=== PATIENT | female | born 1960 | race American Indian/Alaskan Native ===

== ENCOUNTER 2016-03-01 18:06 | Inpatient (IN) | payer MEDICARE ==
--- NOTE | 2016-03-01 18:58 | Emergency Department Report ---
Chief Complaint: Urogenital-Female Stated Complaint: BLOOD IN URINE Time Seen by Provider: 03/01/16 18:54 - HPI History of Present Illness: Patient here complaining of left flank pain. Patient said that it started last and it's getting worst today. She says she has some blood in her urine. Positive nausea without any vomiting. Denies any urinary burning frequency or urgency. She said when she urinates the toilet is full of blood. Patient has a history of pulmonary embolism and she is on Coumadin. - ROS Review of Systems: All systems are negative unless stated in HPI above - Exam Vital Signs: Vital Signs 03/01/16 18:14 Temperature 97.9 F Pulse Rate 73 Respiratory 18 Rate Blood Pressure 150/102 O2 Sat by Pulse 100 Oximetry Physical Exam: General: This is a 55-year-old female that is moaning and groaning saying that she is having abdominal pain. CV: One, S2. Regular rate and rhythm .blood pressure is 150/102. Abdomen: Mild tenderness to palpate to abdominal area. Mild left CVA tenderness. Normal bowel sounds. MSE screening note: Focused history and physical exam performed. Due to findings the following was ordered: See MDM ED Medical Decision Making - Medical Decision Making Medical decision making: Patient seen by provider in triage area. Appropriate protocol activated and patient to main ED to be seen by physician. ED Disposition for MSE Condition: Stable
[2016-03-01 19:33] LABS: Hematocrit 36.4 % (30.3-42.9); Hemoglobin 11.9 gm/dl (10.1-14.3); Mean Corpuscular HGB Conc 33 % (30-34); Mean Corpuscular Hemoglobin 29 pg (28-32); Mean Corpuscular Volume 87 fl (79-97); Platelet Count 308 K/mm3 (140-440); Red Blood Count 4.19 M/mm3 (3.65-5.03); Red Cell Distribution Width 14.9 % (13.2-15.2); White Blood Count 11.3 K/mm3 (4.5-11.0)
[2016-03-01 19:44] LABS: INR 4.09 (0.87-1.13)
[2016-03-01 19:45] LABS: Partial Thromboplastin Time 49.1 Sec. (24.2-36.6)
[2016-03-01 19:59] LABS: Alanine Aminotransferase 16 units/L (7-56); Albumin 3.9 g/dL (3.9-5); Albumin/Globulin Ratio 1.1 %; Alkaline Phosphatase 77 units/L (35-129); Amylase 62 units/L (27-131); BUN/Creatinine Ratio 13.33; Bilirubin,Total 0.4 mg/dL (0.1-1.2); Blood Urea Nitrogen 12 mg/dL (7-17); Calcium 8.7 mg/dL (8.4-10.2); Carbon Dioxide 23 mmol/L (22-30); Chloride 98.6 mmol/L (98-107); Glucose 157 mg/dL (65-100); Lipase 50 units/L (13-60); Potassium 3.4 mmol/L (3.6-5.0); Sodium 139 mmol/L (137-145); Total Protein 7.4 g/dL (6.3-8.2)
[2016-03-01 20:01] LABS: Anion Gap 21 mmol/L
--- NOTE | 2016-03-01 20:02 | Cat Scan Report ---
FINAL REPORT PROCEDURE: CT ABDOMEN PELVIS WO CON TECHNIQUE: Computerized axial tomography of the abdomen and pelvis was performed without intravenous contrast. This study is performed without intravascular contrast material and its sensitivity for abdominal and pelvic pathology, including neoplasms, inflammation, abscess, free fluid, thrombosis, arterial dissection and infarction, is reduced compared with a contrast enhanced study. HISTORY: abdominal pain COMPARISON: No prior studies are available for comparison. FINDINGS: Calcified granuloma are seen in the spleen. There is a probable cyst in the superior aspect of the right hepatic lobe measuring 1.4 cm. Normal variant diminished density is seen in the bare area of the liver. Gallbladder and pancreas display no abnormalities. Adrenal glands and abdominal aorta are normal in size. Mild perinephric streaky densities are seen that also surround the upper ureters. Mild bilateral hydronephrosis is seen. Both kidneys are excreting hyperdense substance which is worrisome for possible hemorrhage. Findings could be from prior IV contrast-enhanced study. No ureteral stones are seen. Consideration should be given to a possible infectious or inflammatory process within the bilateral collecting systems, right greater than left. Bladder is decompressed but displays no abnormalities. Phleboliths are seen in the pelvis. No free pelvic fluid is seen. No adnexal masses are seen. Normal appendix is seen. There is no bowel obstruction. There is partial sacralization of L5. Moderate to prominent spondylosis is seen at L4-5. IMPRESSION: Findings are suspicious for possible infectious or inflammatory process within the urinary collecting systems, right greater than left. Both kidneys appear to be excreting hyperdense substance which is worrisome for possible hemorrhage within the urine. Density could be from prior IV contrast-enhanced study, though. Mild hydronephrosis is seen bilaterally.
[2016-03-01 20:57] LABS: Basophils % (Manual) 0 % (0.0-1.8); Blastocytes % (Manual) 0 %; Eosinophils % (Manual) 0 % (0.0-4.3)
[2016-03-01 20:59] LABS: Anisocytosis 1+; Diff Status Complete; Platelet Estimate Consistent w Auto
[2016-03-01 23:08] LABS: Bilirubin,Urine NEG (Negative); Blood,Urine LG (Negative); Ketones,Urine NEG (Negative); Leukocyte Esterase,Urine SM (Negative); Mucus,Urine 2+ /HPF; Nitrite,Urine NEG (Negative); Urobilinogen,Urine < 2.0 mg/dL (<2.0)
[2016-03-01 23:13] LABS: RBC,Urine > 182.0 /HPF (0.0-6.0)
[2016-03-02] MEDS ORDERED: MORPHINE IV ONE (03:54)
[2016-03-02] MEDS ORDERED: ROCEPHIN/NS 1 GM/50 ML 50 ML IV ONE (03:54)
--- NOTE | 2016-03-02 03:56 | Emergency Department Report ---
ED General Adult HPI - General Chief complaint: Urogenital-Female Stated complaint: BLOOD IN URINE Time Seen by Provider: 03/01/16 19:01 Source: patient, RN notes reviewed, old records reviewed Mode of arrival: Ambulatory Limitations: No Limitations - History of Present Illness Initial comments: This is a 55-year-old female, previously unknown to me. She has a past medical history of coronary artery disease, pulmonary and was, currently on Coumadin therapy. Patient presents to the ER complaining of flank pain, fever at home, to 101, nausea, gross hematuria, urinary frequency. The patient presented to the ER on February 22 for similar symptoms, and was treated empirically with Macrobid. The patient reports compliance with Macrobid , and has 2 tablets left. There is no hematemesis, there is no bright red blood per rectum. Hematuria and flank/back pain is constant. Has no exacerbating or relieving factors. -: Gradual Location: back Severity scale (0 -10): 10 Quality: aching Consistency: constant Improves with: none Worsens with: none Associated Symptoms: fever/chills, malaise, nausea/vomiting, weakness. denies: confusion, chest pain, cough, diaphoresis, loss of appetite - Related Data Home Medications Medication Instructions Recorded Confirmed Last Taken Amiodarone [Cordarone 200 MG TAB] 200 mg PO DAILY 12/15/15 02/23/16 Unknown Aspirin [Aspirin BABY CHEW TAB] 81 mg PO QDAY 12/15/15 02/23/16 Unknown Docusate Sodium [Colace] 100 mg PO BID PRN 12/15/15 02/23/16 Unknown Metoprolol Tartrate [Lopressor] 25 mg PO TID 12/15/15 02/23/16 Unknown Warfarin [Coumadin] 1 mg PO QDAY 12/15/15 02/23/16 Unknown Previous Rx's Medication Instructions Recorded Last Taken Type Nitrofurantoin Treutlen/M-Cryst 100 mg PO Q12HR #14 capsule 02/23/16 Unknown Rx [Macrobid CAP] Allergies Allergy/AdvReac Type Severity Reaction Status Date / Time No Known Allergies Allergy Verified 11/29/15 14:50 ED Review of Systems ROS: Stated complaint: BLOOD IN URINE Other details as noted in HPI Constitutional: chills, fever Eyes: denies: vision change ENT: denies: epistaxis Respiratory: denies: cough Cardiovascular: denies: chest pain Gastrointestinal: nausea Genitourinary: frequency, hematuria Musculoskeletal: back pain Skin: denies: rash, lesions Neurological: denies: headache, weakness ED Past Medical Hx - Past Medical History Previous Medical History?: Yes Hx Hypertension: Yes Hx Heart Attack/AMI: Yes Hx Congestive Heart Failure: No Hx Diabetes: No Hx Arthritis: Yes Hx Asthma: No Hx COPD: No Additional medical history: 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 - Surgical History Past Surgical History?: Yes Hx Open Heart Surgery: Yes (TRIPLE BYPASS) Additional Surgical History: tubal ligation, wrist surgery, elbow surgery - Social History Smoking Status: Current Every Day Smoker Substance Use Type: Non Opiate Pain, Prescribed - Medications Home Medications: Home Medications Medication Instructions Recorded Confirmed Last Taken Type Amiodarone [Cordarone 200 MG TAB] 200 mg PO DAILY 12/15/15 02/23/16 Unknown History Aspirin [Aspirin BABY CHEW TAB] 81 mg PO QDAY 12/15/15 02/23/16 Unknown History Docusate Sodium [Colace] 100 mg PO BID PRN 12/15/15 02/23/16 Unknown History Metoprolol Tartrate [Lopressor] 25 mg PO TID 12/15/15 02/23/16 Unknown History Warfarin [Coumadin] 1 mg PO QDAY 12/15/15 02/23/16 Unknown History Nitrofurantoin Treutlen/M-Cryst 100 mg PO Q12HR #14 capsule 02/23/16 Unknown Rx [Macrobid CAP] ED Physical Exam - General Limitations: No Limitations General appearance: alert, in no apparent distress - Head Head exam: Present: atraumatic, normocephalic - Eye Eye exam: Present: normal appearance, EOMI. Absent: nystagmus - ENT ENT exam: Present: normal exam, normal orophraynx, mucous membranes moist, normal external ear exam - Neck Neck exam: Present: normal inspection, full ROM. Absent: tenderness, meningismus - Respiratory Respiratory exam: Present: normal lung sounds bilaterally. Absent: respiratory distress, wheezes, rales, rhonchi, stridor, chest wall tenderness - Cardiovascular Cardiovascular Exam: Present: regular rate, normal rhythm, normal heart sounds. Absent: bradycardia, tachycardia, irregular rhythm, systolic murmur, diastolic murmur, rubs, gallop - GI/Abdominal GI/Abdominal exam: Present: soft, normal bowel sounds. Absent: distended, tenderness, guarding, rebound, rigid, pulsatile mass - External exam: Present: normal external exam, other (escorted by ASIF HUGHES). Absent: bleeding - Extremities Exam Extremities exam: Present: normal inspection, full ROM, normal capillary refill. Absent: tenderness, pedal edema, joint swelling, calf tenderness - Back Exam Back exam: Present: normal inspection, full ROM, CVA tenderness (R), CVA tenderness (L). Absent: tenderness, paraspinal tenderness, vertebral tenderness - Neurological Exam Neurological exam: Present: alert, oriented X3, normal gait, other (Extraocular movements intact. Tongue midline. No facial droop. Facial sensation intact to light touch in the V1, V2, V3 distribution bilaterally. 5 and 5 strength in 4 extremities.. Sensation is intact to light touch in 4 extremities.). Absent : motor sensory deficit - Psychiatric Psychiatric exam: Present: normal affect, normal mood - Skin Skin exam: Present: warm, dry, intact, normal color. Absent: rash ED Course Vital Signs 03/01/16 03/02/16 03/02/16 18:14 00:58 03:21 Temperature 97.9 F 97.4 F L Pulse Rate 73 79 89 Respiratory 18 16 Rate Blood Pressure 150/102 Blood Pressure 147/98 [Left] O2 Sat by Pulse 100 100 Oximetry 03/02/16 03/02/16 03/02/16 03:25 03:32 04:14 Temperature Pulse Rate 79 Respiratory 13 18 16 Rate Blood Pressure 136/80 Blood Pressure [Left] O2 Sat by Pulse 98 99 Oximetry - Reevaluation(s) Reevaluation #1: 03/02/16 04:30 Differential diagnosis: Pyelonephritis, supratherapeutic INR, para, renal hemorrhage, collecting system hemorrhage Assessment and plan: 55-year-old female with gross hematuria, possible pyelonephritis, supratherapeutic INR. In terms of the patient's possible pyelonephritis, she has been taking antibiotic therapy, has reported compliance, it is still symptomatic. Not a candidate for fluoroquinolone therapy given that she is taking Coumadin therapy. Reports fever at home. A noncontrast CT scan of the abdomen and pelvis demonstrated numerous concerning findings, including streaky densities, hydronephrosis, and both kidneys excreting hyperdense material. Renal hemorrhage is certainly a possibility. She is afebrile currently and is normotensive. She will be covered empirically with ceftriaxone, which is bacteriocidal rather than bacteriostatic Macrobid. She will be given vitamin K orally. I believe she will benefit from pain control, serial abdominal and back exams, IV antibiotics, and adjustment of her medications for her supratherapeutic INR. Given that this is her second visit within a week and a half, and she reports compliance with antibiotic therapy Dr. Giles, the hospital physician, accepts the patient. ED Medical Decision Making - Lab Data Result diagrams: 03/01/16 19:17 03/01/16 19:17 Vital Signs 03/01/16 03/02/16 03/02/16 18:14 00:58 03:21 Temperature 97.9 F 97.4 F L Pulse Rate 73 79 89 Respiratory 18 16 Rate Blood Pressure 150/102 Blood Pressure 147/98 [Left] O2 Sat by Pulse 100 100 Oximetry 03/02/16 03/02/16 03/02/16 03:25 03:32 04:14 Temperature Pulse Rate 79 Respiratory 13 18 16 Rate Blood Pressure 136/80 Blood Pressure [Left] O2 Sat by Pulse 98 99 Oximetry Lab Results 03/01/16 03/01/16 03/01/16 Range/Units 19:17 19:17 19:17 WBC 11.3 H (4.5-11.0) K/mm3 RBC 4.19 (3.65-5.03) M/mm3 Hgb 11.9 (10.1-14.3) gm/dl Hct 36.4 (30.3-42.9) % MCV 87 (79-97) fl MCH 29 (28-32) pg MCHC 33 (30-34) % RDW 14.9 (13.2-15.2) % Plt Count 308 (140-440) K/mm3 Lymph % (Auto) Assistant Associate Professor Lymph # Assistant Associate Professor Add Manual Diff Complete Total Counted 100 Seg Neutrophils % Assistant Associate Professor Seg Neuts % (Manual) 28.0 L (40.0-70.0) % Band Neutrophils % 10.0 % Lymphocytes % (Manual) 51.0 H (13.4-35.0) % Reactive Lymphs % (Man) 9.0 % Monocytes % (Manual) 2.0 (0.0-7.3) % Eosinophils % (Manual) 0 (0.0-4.3) % Basophils % (Manual) 0 (0.0-1.8) % Metamyelocytes % 0 % Myelocytes % 0 % Promyelocytes % 0 % Blast Cells % 0 % Nucleated RBC % Not Reportable Seg Neutrophils # Man 3.2 (1.8-7.7) K/mm3 Band Neutrophils # 1.1 K/mm3 Lymphocytes # (Manual) 5.8 H (1.2-5.4) K/mm3 Abs React Lymphs (Man) 1.0 K/mm3 Monocytes # (Manual) 0.2 (0.0-0.8) K/mm3 Eosinophils # (Manual) 0.0 (0.0-0.4) K/mm3 Basophils # (Manual) 0.0 (0.0-0.1) K/mm3 Metamyelocytes # 0.0 K/mm3 Myelocytes # 0.0 K/mm3 Promyelocytes # 0.0 K/mm3 Blast Cells # 0.0 K/mm3 WBC Morphology Not Reportable Hypersegmented Neuts Not Reportable Hyposegmented Neuts Not Reportable Hypogranular Neuts Not Reportable Smudge Cells Not Reportable Toxic Granulation Not Reportable Toxic Vacuolation Not Reportable Dohle Bodies Not Reportable Pelger-Huet Anomaly Not Reportable Karine Rods Not Reportable Platelet Estimate Consistent w auto Clumped Platelets Not Reportable Plt Clumps, EDTA Not Reportable Large Platelets Not Reportable Giant Platelets Not Reportable Platelet Satelliting Not Reportable Plt Morphology Comment Not Reportable RBC Morphology Not Reportable Dimorphic RBCs Not Reportable Polychromasia Not Reportable Hypochromasia Not Reportable Poikilocytosis Not Reportable Anisocytosis 1+ Microcytosis Not Reportable Macrocytosis Not Reportable Spherocytes Not Reportable Pappenheimer Bodies Not Reportable Sickle Cells Not Reportable Target Cells Not Reportable Tear Drop Cells Not Reportable Ovalocytes Not Reportable Helmet Cells Not Reportable Merrill-Belmond Bodies Not Reportable Heron Rings Not Reportable [place] Cells Not Reportable Bite Cells Not Reportable Crenated Cell Not Reportable Elliptocytes Not Reportable Acanthocytes (Spur) Not Reportable Rouleaux Not Reportable Hemoglobin C Crystals Not Reportable Schistocytes Not Reportable Malaria parasites Not Reportable Massimo Bodies Not Reportable Hem Pathologist Commnt No PT 40.1 H (12.2-14.9) Sec. INR 4.09 H (0.87-1.13) APTT 49.1 H (24.2-36.6) Sec. Sodium 139 (137-145) mmol/L Potassium 3.4 L (3.6-5.0) mmol/L Chloride 98.6 (98-107) mmol/L Carbon Dioxide 23 (22-30) mmol/L Anion Gap 21 mmol/L BUN 12 (7-17) mg/dL Creatinine 0.9 (0.7-1.2) mg/dL Estimated GFR > 60 ml/min BUN/Creatinine Ratio 13.33 % Glucose 157 H (65-100) mg/dL Calcium 8.7 (8.4-10.2) mg/dL Total Bilirubin 0.4 (0.1-1.2) mg/dL AST 22 (5-40) units/L ALT 16 (7-56) units/L Alkaline Phosphatase 77 (35-129) units/L Total Protein 7.4 (6.3-8.2) g/dL Albumin 3.9 (3.9-5) g/dL Albumin/Globulin Ratio 1.1 % Amylase 62 (27-131) units/L Lipase 50 (13-60) units/L Urine Color (Yellow) Urine Turbidity (Clear) Urine pH (5.0-7.0) Ur Specific [place] (1.003-1.030) Urine Protein (Negative) mg/dL Urine Glucose (UA) (Negative) mg/dL Urine Ketones (Negative) mg/dL Urine Blood (Negative) Urine Nitrite (Negative) Urine Bilirubin (Negative) Urine Urobilinogen (<2.0) mg/dL Ur Leukocyte Esterase (Negative) Urine WBC (Auto) (0.0-6.0) /HPF Urine RBC (Auto) (0.0-6.0) /HPF U Epithel Cells (Auto) (0-13.0) /HPF Urine Mucus /HPF Blood Type Antibody Screen 03/01/16 03/01/16 Range/Units 19: 21:55 WBC (4.5-11.0) K/mm3 RBC (3.65-5.03) M/mm3 Hgb (10.1-14.3) gm/dl Hct (30.3-42.9) % MCV (79-97) fl MCH (28-32) pg MCHC (30-34) % RDW (13.2-15.2) % Plt Count (140-440) K/mm3 Lymph % (Auto) Lymph # Add Manual Diff Total Counted Seg Neutrophils % Seg Neuts % (Manual) (40.0-70.0) % Band Neutrophils % % Lymphocytes % (Manual) (13.4-35.0) % Reactive Lymphs % (Man) % Monocytes % (Manual) (0.0-7.3) % Eosinophils % (Manual) (0.0-4.3) % Basophils % (Manual) (0.0-1.8) % Metamyelocytes % % Myelocytes % % Promyelocytes % % Blast Cells % % Nucleated RBC % Seg Neutrophils # Man (1.8-7.7) K/mm3 Band Neutrophils # K/mm3 Lymphocytes # (Manual) (1.2-5.4) K/mm3 Abs React Lymphs (Man) K/mm3 Monocytes # (Manual) (0.0-0.8) K/mm3 Eosinophils # (Manual) (0.0-0.4) K/mm3 Basophils # (Manual) (0.0-0.1) K/mm3 Metamyelocytes # K/mm3 Myelocytes # K/mm3 Promyelocytes # K/mm3 Blast Cells # K/mm3 WBC Morphology Hypersegmented Neuts Hyposegmented Neuts Hypogranular Neuts Smudge Cells Toxic Granulation Toxic Vacuolation Dohle Bodies Pelger-Huet Anomaly Karine Rods Platelet Estimate Clumped Platelets Plt Clumps, EDTA Large Platelets Giant Platelets Platelet Satelliting Plt Morphology Comment RBC Morphology Dimorphic RBCs Polychromasia Hypochromasia Poikilocytosis Anisocytosis Microcytosis Macrocytosis Spherocytes Pappenheimer Bodies Sickle Cells Target Cells Tear Drop Cells Ovalocytes Helmet Cells Merrill-Belmond Bodies Heron Rings [place] Cells Bite Cells Crenated Cell Elliptocytes Acanthocytes (Spur) Rouleaux Hemoglobin C Crystals Schistocytes Malaria parasites Massimo Bodies Hem Pathologist Commnt PT (12.2-14.9) Sec. INR (0.87-1.13) APTT (24.2-36.6) Sec. Sodium (137-145) mmol/L Potassium (3.6-5.0) mmol/L Chloride (98-107) mmol/L Carbon Dioxide (22-30) mmol/L Anion Gap mmol/L BUN (7-17) mg/dL Creatinine (0.7-1.2) mg/dL Estimated GFR ml/min BUN/Creatinine Ratio % Glucose (65-100) mg/dL Calcium (8.4-10.2) mg/dL Total Bilirubin (0.1-1.2) mg/dL AST (5-40) units/L ALT (7-56) units/L Alkaline Phosphatase (35-129) units/L Total Protein (6.3-8.2) g/dL Albumin (3.9-5) g/dL Albumin/Globulin Ratio % Amylase (27-131) units/L Lipase (13-60) units/L Urine Color Debra (Yellow) Urine Turbidity Turbid (Clear) Urine pH 6.0 (5.0-7.0) Ur Specific [place] 1.018 (1.003-1.030) Urine Protein 100 mg/dl (Negative) mg/dL Urine Glucose (UA) Neg (Negative) mg/dL Urine Ketones Neg (Negative) mg/dL Urine Blood Lg (Negative) Urine Nitrite Neg (Negative) Urine Bilirubin Neg (Negative) Urine Urobilinogen < 2.0 (<2.0) mg/dL Ur Leukocyte Esterase Sm (Negative) Urine WBC (Auto) 24.0 H (0.0-6.0) /HPF Urine RBC (Auto) > 182.0 (0.0-6.0) /HPF U Epithel Cells (Auto) 3.0 (0-13.0) /HPF Urine Mucus 2+ /HPF Blood Type A POSITIVE Antibody Screen Negative - Radiology Data Radiology results: report reviewed, image reviewed Noncontrast CT scan of the abdomen and pelvis demonstrates infectious or inflammatory process within the urinary collecting systems, possible hemorrhage. Critical care attestation.: If time is entered above; I have spent that time in minutes in the direct care of this critically ill patient, excluding procedure time. ED Disposition Clinical Impression: Supratherapeutic INR, Hematuria UTI (urinary tract infection) Qualifiers: Urinary tract infection type: site unspecified Hematuria presence: with hematuria Qualified Code(s): N39.0 - Urinary tract infection, site not specified Disposition: OP ADMITTED IP TO THIS HOSP Is pt being admited?: Yes Does the pt Need Aspirin: No Condition: Good Referrals: PRIMARY CARE,MD [Primary Care Provider] - 3-5 Days
[2016-03-02] MEDS ORDERED: VITAMIN K *ORAL LIQUID PO ONE (04:29)
--- NOTE | 2016-03-02 06:04 | Admit Criteria Form ---
Admission Criteria Documentation: URINARY COMPLICATIONS Clinical Indications for Inpatient Care (Place 'X' for any and all applicable criteria): Ongoing inpatient care may be indicated for urinary complications with ANY ONE of the following: [X ]I. Urinary tract infection requiring inpatient care as indicated by ANY ONE of the following(8)(19)(20): [X ]a) Severe symptoms (eg, high fever, severe pain) [ ]b) Vomiting or dehydration requiring ongoing inpatient care [X ]c) IV antibiotic needs that cannot be managed at lower level of care [ ]d) Hemodynamic instability [ ]e) Obstruction of collecting system by stone or tumor [ ]II. Urinary retention requiring drainage or surgery (3)(4)(5)(17)(18) [ ]III. Renal failure (Use Renal Failure Criteria for further information.) [ ]IV. Oliguria(30) [ ]V. Post obstructive diuresis requiring close monitoring of urine output and intravenous compensation for excessive fluid losses(33) Extended stay beyond goal length of stay for primary condition may be needed until ALL of the following are present(3)(4)(5)(8): [ ]a) Renal function (creatinine) at baseline, or daily decreases in creatinine consistent with renal function return [ ]b) Voiding adequately or with urinary catheter or percutaneous suprapubic tube and management regimen in place that is performable at lower level of care. [ ]c) Urine output adequate [ ]d) Fever absent or resolving [ ]e) Infection absent or treatable at next level of care The original [employer] content created by [employer] has been revised. The portions of the content which have been revised are identified through the use of italic text or in bold, and [facility] has neither reviewed nor approved the modified material. All other unmodified content is copyright [employer] Please see references footnoted in the original [employer] edition 2016 Admission Criteria Met: Yes
[2016-03-03] MEDS ORDERED: COLACE PO PRN (12:27)
--- NOTE | 2016-03-03 12:31 | Progress Note ---
Hospitalist Physical - Constitutional Vitals: Temp Pulse Resp BP Pulse Ox 98 F 64 18 128/80 98 03/03/16 08:00 03/03/16 08:00 03/03/16 08:00 03/03/16 08:00 03/03/16 08:00 Results - Labs CBC & Chem 7: 03/01/16 19:17 03/01/16 19:17 Labs: Laboratory Last Values WBC 11.3 K/mm3 (4.5-11.0) H 03/01/16 19:17 RBC 4.19 M/mm3 (3.65-5.03) 03/01/16 19:17 Hgb 11.9 gm/dl (10.1-14.3) 03/01/16 19:17 Hct 36.4 % (30.3-42.9) 03/01/16 19:17 MCV 87 fl (79-97) 03/01/16 19:17 MCH 29 pg (28-32) 03/01/16 19:17 MCHC 33 % (30-34) 03/01/16 19:17 RDW 14.9 % (13.2-15.2) 03/01/16 19:17 Plt Count 308 K/mm3 (140-440) 03/01/16 19:17 Lymph % (Auto) Buckle Sorter 03/01/16 19:17 Lymph # Buckle Sorter 03/01/16 19:17 Add Manual Diff Complete 03/01/16 19:17 Total Counted 100 03/01/16 19:17 Seg Neutrophils % Buckle Sorter 03/01/16 19:17 Seg Neuts % (Manual) 28.0 % (40.0-70.0) L 03/01/16 19:17 Band Neutrophils % 10.0 % 03/01/16 19:17 Lymphocytes % (Manual) 51.0 % (13.4-35.0) H 03/01/16 19:17 Reactive Lymphs % (Man) 9.0 % 03/01/16 19:17 Monocytes % (Manual) 2.0 % (0.0-7.3) 03/01/16 19:17 Eosinophils % (Manual) 0 % (0.0-4.3) 03/01/16 19:17 Basophils % (Manual) 0 % (0.0-1.8) 01/19/17 19:17 Metamyelocytes % 0 % 03/01/16 19:17 Myelocytes % 0 % 03/01/16 19:17 Promyelocytes % 0 % 03/01/16 19:17 Blast Cells % 0 % 03/01/16 19:17 Nucleated RBC % Not Reportable 03/01/16 19:17 Seg Neutrophils # Man 3.2 K/mm3 (1.8-7.7) 03/01/16 19:17 Band Neutrophils # 1.1 K/mm3 03/01/16 19:17 Lymphocytes # (Manual) 5.8 K/mm3 (1.2-5.4) H 03/01/16 19:17 Abs React Lymphs (Man) 1.0 K/mm3 03/01/16 19:17 Monocytes # (Manual) 0.2 K/mm3 (0.0-0.8) 03/01/16 19:17 Eosinophils # (Manual) 0.0 K/mm3 (0.0-0.4) 03/01/16 19:17 Basophils # (Manual) 0.0 K/mm3 (0.0-0.1) 03/01/16 19:17 Metamyelocytes # 0.0 K/mm3 03/01/16 19:17 Myelocytes # 0.0 K/mm3 03/01/16 19:17 Promyelocytes # 0.0 K/mm3 03/01/16 19:17 Blast Cells # 0.0 K/mm3 03/01/16 19:17 WBC Morphology Not Reportable 03/01/16 19:17 Hypersegmented Neuts Not Reportable 03/01/16 19:17 Hyposegmented Neuts Not Reportable 03/01/16 19:17 Hypogranular Neuts Not Reportable 03/01/16 19:17 Smudge Cells Not Reportable 03/01/16 19:17 Toxic Granulation Not Reportable 03/01/16 19:17 Toxic Vacuolation Not Reportable 03/01/16 19:17 Dohle Bodies Not Reportable 03/01/16 19:17 Pelger-Huet Anomaly Not Reportable 03/01/16 19:17 Karine Rods Not Reportable 03/01/16 19:17 Platelet Estimate Consistent w auto 03/01/16 19:17 Clumped Platelets Not Reportable 03/01/16 19:17 Plt Clumps, EDTA Not Reportable 03/01/16 19:17 Large Platelets Not Reportable 03/01/16 19:17 Giant Platelets Not Reportable 03/01/16 19:17 Platelet Satelliting Not Reportable 03/01/16 19:17 Plt Morphology Comment Not Reportable 03/01/16 19:17 RBC Morphology Not Reportable 03/01/16 19:17 Dimorphic RBCs Not Reportable 03/01/16 19:17 Polychromasia Not Reportable 03/01/16 19:17 Hypochromasia Not Reportable 03/01/16 19:17 Poikilocytosis Not Reportable 03/01/16 19:17 Anisocytosis 1+ 03/01/16 19:17 Microcytosis Not Reportable 03/01/16 19:17 Macrocytosis Not Reportable 03/01/16 19:17 Spherocytes Not Reportable 03/01/16 19:17 Pappenheimer Bodies Not Reportable 03/01/16 19:17 Sickle Cells Not Reportable 03/01/16 19:17 Target Cells Not Reportable 03/01/16 19:17 Tear Drop Cells Not Reportable 03/01/16 19:17 Ovalocytes Not Reportable 03/01/16 19:17 Helmet Cells Not Reportable 03/01/16 19:17 Merrill-[place] Bodies Not Reportable 03/01/16 19:17 Hope Rings Not Reportable 03/01/16 19:17 Sebastián Cells Not Reportable 03/01/16 19:17 Bite Cells Not Reportable 03/01/16 19:17 Crenated Cell Not Reportable 03/01/16 19:17 Elliptocytes Not Reportable 03/01/16 19:17 Acanthocytes (Spur) Not Reportable 03/01/16 19:17 Rouleaux Not Reportable 03/01/16 19:17 Hemoglobin C Crystals Not Reportable 03/01/16 19:17 Schistocytes Not Reportable 03/01/16 19:17 Malaria parasites Not Reportable 03/01/16 19:17 Massimo Bodies Not Reportable 03/01/16 19:17 Hem Pathologist Commnt No 03/01/16 19:17 PT 40.1 Sec. (12.2-14.9) H 03/01/16 19:17 INR 4.09 (0.87-1.13) H 03/01/16 19:17 APTT 49.1 Sec. (24.2-36.6) H 03/01/16 19:17 Sodium 139 mmol/L (137-145) 03/01/16 19:17 Potassium 3.4 mmol/L (3.6-5.0) L 03/01/16 19:17 Chloride 98.6 mmol/L (98-107) 03/01/16 19:17 Carbon Dioxide 23 mmol/L (22-30) 03/01/16 19:17 Anion Gap 21 mmol/L 03/01/16 19:17 BUN 12 mg/dL (7-17) 03/01/16 19:17 Creatinine 0.9 mg/dL (0.7-1.2) 03/01/16 19:17 Estimated GFR > 60 ml/min 03/01/16 19: BUN/Creatinine Ratio 13.33 % 03/01/16 19: Glucose 157 mg/dL (65-100) H 03/01/16 19: Calcium 8.7 mg/dL (8.4-10.2) 03/01/16 19:17 Total Bilirubin 0.4 mg/dL (0.1-1.2) 03/01/16 19:17 AST 22 units/L (5-40) 03/01/16 19:17 ALT 16 units/L (7-56) 03/01/16 19:17 Alkaline Phosphatase 77 units/L (35-129) 03/01/16 19:17 Total Protein 7.4 g/dL (6.3-8.2) 03/01/16 19:17 Albumin 3.9 g/dL (3.9-5) 03/01/16 19:17 Albumin/Globulin Ratio 1.1 % 03/01/16 19: Amylase 62 units/L (27-131) 03/01/16 19:17 Lipase 50 units/L (13-60) 03/01/16 19:17 Urine Color Debra (Yellow) 03/01/16 21:55 Urine Turbidity Turbid (Clear) 03/01/16 21:55 Urine pH 6.0 (5.0-7.0) 03/01/16 21:55 Ur Specific [place] 1.018 (1.003-1.030) 03/01/16 21:55 Urine Protein 100 mg/dl mg/dL (Negative) 03/01/16 21:55 Urine Glucose (UA) Neg mg/dL (Negative) 03/01/16 21:55 Urine Ketones Neg mg/dL (Negative) 03/01/16 21:55 Urine Blood Lg (Negative) 03/01/16 21:55 Urine Nitrite Neg (Negative) 03/01/16 21:55 Urine Bilirubin Neg (Negative) 03/01/16 21:55 Urine Urobilinogen < 2.0 mg/dL (<2.0) 03/01/16 21:55 Ur Leukocyte Esterase Sm (Negative) 03/01/16 21:55 Urine WBC (Auto) 24.0 /HPF (0.0-6.0) H 03/01/16 21:55 Urine RBC (Auto) > 182.0 /HPF (0.0-6.0) 03/01/16 21:55 U Epithel Cells (Auto) 3.0 /HPF (0-13.0) 03/01/16 21:55 Urine Mucus 2+ /HPF 03/01/16 21:55 Blood Type A POSITIVE 03/01/16: Antibody Screen Negative 03/01/16:17
[2016-03-03 13:51] LABS: INR 1.6 (0.87-1.13)
[2016-03-03 14:03] LABS: Anion Gap 17 mmol/L; BUN/Creatinine Ratio 11.42; Blood Urea Nitrogen 8 mg/dL (7-17); Calcium 8.9 mg/dL (8.4-10.2); Carbon Dioxide 28 mmol/L (22-30); Chloride 101.1 mmol/L (98-107); Glucose 155 mg/dL (65-100); Sodium 142 mmol/L (137-145)
--- NOTE | 2016-03-03 16:59 | Discharge Summary ---
Providers - Providers Date of Admission: 03/02/16 06:26 Date of discharge: 03/03/16 Attending physician: SHERYL MARCOS Primary care physician: [employer] Hospitalization Reason for admission: febrile illness Condition: Good Hospital course: 55-year-old female patient with significant past medical history of coronary artery disease pulmonary embolism on Coumadin therapy was admitted through emergency room with worsening shortness of breath and pain and fever as well as gross hematuria patient was initially evaluated and admitted to the hospital, empirically treated for urinary tract infection with IV antibiotics, patient is on Coumadin for her PE, INR was closely monitor for therapeutic goal between 2 and 3, since INR was noted to be supratherapeutic at the time of admission, no evidence of bleeding, Coumadin held and INR was closely monitored Patient's urine cultures were negative, no new episodes of fever or flank pain Day of discharge patient was comfortable in bed alert and awake responding appropriately Vital signs are stable [id number] evaluation physical examination done by me prior to discharge was unremarkable as detailed below Patient is discharged home, counseling done patient strongly advised to adhere to the treatment plan, frequent monitoring of INR to therapeutic goal between 2 and 3 Patient verbalized understanding Final diagnosis; Febrile illness resolved no evidence of UTI cultures negative Supratherapeutic INR Cardiac arrhythmia on amiodarone History of pulmonary embolism on anticoagulation Hypertension Chronic anticoagulation target INR 2-3 Ongoing tobacco use Disposition: DISCHARGED TO HOME OR SELFCARE Time spent for discharge: 31 min Core Measure Documentation - Palliative Care Palliative Care/ Comfort Measures: Not Applicable - Core Measures Any of the following diagnoses?: DVT/PE - VTE Discharge Requirements Deep Vein Thrombosis/Pulmonary Embolism Present on Admission: Yes Has pt received <5 days of overlap therapy or INR<2.0: No Anticoagulant overlap therapy prescribed at discharge: No Contraindication No Overlap Therapy order at DC: Not Indicated (history of PE/ supratherapeutic INR/overlap not indicated) Exam - Constitutional Vitals: Temp Pulse Resp BP Pulse Ox 98 F 64 18 128/80 98 03/03/16 08:00 03/03/16 08:00 03/03/16 08:00 03/03/16 08:00 03/03/16 08:00 General appearance: Present: no acute distress, well-nourished - EENT Eyes: Present: PERRL, EOM intact - Neck Neck: Present: supple, normal ROM - Respiratory Respiratory effort: normal Respiratory: negative: rales, rhonchi, wheezing - Cardiovascular Rhythm: regular Heart Sounds: Present: S1 & S2 - Extremities Extremities: no ischemia, pulses intact, pulses symmetrical Peripheral Pulses: within normal limits - Abdominal General gastrointestinal: Present: soft, non-tender, non-distended, normal bowel sounds - Integumentary Integumentary: Present: clear, warm - Musculoskeletal Musculoskeletal: strength equal bilaterally - Psychiatric Psychiatric: appropriate mood/affect, cooperative - Neurologic Neurologic: CNII-XII intact, moves all extremities Plan Activity: no restrictions Diet: other (cardiac diet as tolerated/Coumadin precautions) Additional Instructions: Next INR check on 03/05/16 at [facility] office. Target INR 2 -3. If you are not INR is more than 3 or if you notice any bleeding will hold Coumadin and contact M.D. or go to emergency room. Start Coumadin 5 mg daily at bedtime from tonight. Follow private stretcher and drier per scheduled Follow up with: PRIMARY CAREMD [Primary Care Provider] - 3-5 Days
[2016-03-03 17:07] VITALS: BP 130/74
--- NOTE | 2016-03-03 21:18 | History and Physical Report ---
CHIEF COMPLAINT: Fever of 101 degrees . Shortness of breath. HISTORY OF PRESENT ILLNESS: A 55-year-old female with a history of coronary artery disease, pulmonary embolism, currently on Coumadin therapy comes to ER for flank pain and 101 of fever. Also gross hematuria and urinary frequency. The patient was treated with Macrobid on 02/23/2016. The patient reports compliance with Macrobid. Now mainly fever and chills. PAST MEDICAL HISTORY: Significant for arrhythmias, pulmonary embolism, hypertension, and anticoagulation. CURRENT MEDICATIONS: Amiodarone 200 mg once a day, aspirin 81 mg once a day, Colace 100 mg twice a day, metoprolol 25 mg 3 times a day, and Coumadin 1 mg p.o. daily. PAST SURGICAL HISTORY: Triple bypass. Tubal ligation surgery, elbow surgery. SOCIAL HISTORY: He smokes about a pack a day. FAMILY HISTORY: Significant for hypertension. REVIEW OF SYSTEMS: CONSTITUTIONAL: Low-grade fever present. No weight loss, no weight gain. HEENT: No sore throat. No postnasal drip. CARDIOVASCULAR AND RESPIRATORY: No shortness of breath, no chest pain, no palpitations. GASTROINTESTINAL: No nausea, no vomiting, no diarrhea. GENITOURINARY: Dysuria present. Hematuria present. EXTREMITIES AND MUSCULOSKELETAL: No joint pain, no muscle pains. CENTRAL NERVOUS SYSTEM: No syncope, no seizures. SKIN: No rashes. LYMPHATIC AND HEMATOLOGIC: No lymphadenopathy, no easy bruising. A 14-point review of systems is done and otherwise negative. PHYSICAL EXAMINATION: VITAL SIGNS: GENERAL: On examination, middle-aged female, cooperative during examination. VITAL SIGNS: Blood pressure is 150/102, repeated was 147/98 and temperature is 97.9, pulse is 73, and respirations are 18. HEENT: Unremarkable. Pupils are equal and reactive. NECK: Supple, no lymphadenopathy, no thyromegaly. LUNGS: Clear to auscultation and percussion. Good air entry. CARDIOVASCULAR: S1, S2 heard. No gallop, no murmur, no rub. Apical impulse in left fifth intercostal space and midclavicular line. ABDOMEN: Soft and benign. No hepatosplenomegaly. No guarding, no rigidity. Hernial orifices are normal. EXTREMITIES: Good pedal pulses. No pedal edema. CENTRAL NERVOUS SYSTEM: Alert and oriented x 4. Nonfocal exam. SKIN: Normal. LABORATORY DATA: White count is 11,300, H and H are 11.9 and 36.4, and platelet count is 308,000. Protime is 40.1, INR is 4.09, and PTT is 49.1, BUN and creatinine are 12 and 0.9. Sodium is 139, potassium is 3.4, chloride is 98.6, bicarbonate is 23, BUN and creatinine are 12 and 0.9, AST is 22, ALT is 16, alkaline phosphatase is 77 and albumin is 3.9. Urine is negative. CT of the abdomen demonstrates inflammatory process within the urinary collecting system with possible hemorrhage. ASSESSMENT AND PLAN: 1. Urinary tract infection. The patient to be admitted with IV Rocephin. 2. Also, hypokalemia to be supplemented. 3. Coagulopathy. Protime is high to be reversed. Once the coagulation time is around 2, to be sent home. Hematuria secondary to coagulopathy. Adjust the dosage of Coumadin, so that the patient does not have hematuria, and ____ stay in the range of 1.5 to 2.5. 4. History of pulmonary embolism, stable at present. 5. Deep venous thrombosis prophylaxis, Lovenox 40 mg subcutaneous daily. In summary, the patient had acute pulmonary embolism for which she is being treated with Coumadin. Also, hematuria and acute cystitis and low grade fever. The patient to be on Rocephin 2 g IV piggyback q.24 hours. Probable discharge in 1 day. The protime can be reversed to 2. JOB# [id number] KENJI/KEYLA GRANADOS
[2016-03-03] MEDS ORDERED: LOPRESSOR PO SCH (22:00)
[2016-03-03] MEDS ORDERED: MACROBID PO SCH (22:00)
[2016-03-04] MEDS ORDERED: PROTONIX PO SCH (10:00)
[2016-03-04] MEDS ORDERED: CORDARONE PO SCH (10:00)
[2016-03-04] MEDS ORDERED: BABY ASPIRIN PO SCH (10:00)
== END 2016-03-03 17:20 | disposition home or self-care (01) | DRG 690 ==
LOC: ED 18:06 → 3A 03-02 06:26 → UNDODISIN 03-03 14:00
PROVIDERS: ADMIT Internal Medicine; ATTEND Internal Medicine
DX: N39.0 Urinary tract infection, site not specified (principal); D68.9 Coagulation defect, unspecified; I25.10 Atherosclerotic heart disease of native coronary artery without angina pectoris; F17.210 Nicotine dependence, cigarettes, uncomplicated; E87.6 Hypokalemia; Z82.49 Family history of ischemic heart disease and other diseases of the circulatory system; Z86.711 Personal history of pulmonary embolism; Z79.82 Long term (current) use of aspirin; Z98.51 Tubal ligation status
CPT/HCPCS: 36415; 74176; 80048; 80053; 81001; 82150; 83690; 85007; 85025; 85610; 85730; 86850; 86900; 86901; 87086; 96365; 96375; J0696; J2270; J3430